=== PATIENT | male | born 1980 | race Two or more races ===

== ENCOUNTER 2021-10-26 15:28 | Emergency (ER) | payer SELFPAY ==
[~2021-10-26] VITALS: Ht 165.1 cm; Wt 70.3 kg
[2021-10-26 15:51] VITALS: BP 162/81
[2021-10-26] MEDS ORDERED: ACETAMINOPHEN ES 500 MG TABLET PO ONE (16:00)
[2021-10-26] MEDS ORDERED: IBUPROFEN 600 MG TABLET PO ONE (16:00)
[2021-10-26] MEDS ORDERED: IBUPROFEN 600 MG TABLET ONE (16:12)
[2021-10-26] MEDS ORDERED: ACETAMINOPHEN ES 500 MG TABLET ONE ×2 (16:12→16:19)
--- NOTE | 2021-10-26 17:46 | NUR ---
Patient discharged to home in stable condition. Written and verbal after care instructions given. Patient verbalizes understanding of instruction.
== END 2021-10-26 17:47 | disposition home or self-care (01) ==
LOC: ER 15:38
DX: B34.9 Viral infection, unspecified (principal); Z20.822 Contact with and (suspected) exposure to COVID-19
CPT/HCPCS: 71045; 87426; 87804; 99284; C9803